=== PATIENT | male | born 1995 | race Caucasian/White ===

== ENCOUNTER 2021-03-24 03:14 | Emergency (ER) | payer SELFPAY ==
[2021-03-24] MEDS ORDERED: DIPHTH,PERTUSS(ACELL),TET 0.5 ML DISP.SYRIN IM ONE ×2 (03:29→04:10)
[2021-03-24 03:34] VITALS: BP 97/62; PULSE 125; TEMP 98.8; BMI 25.4
[2021-03-24] MEDS ORDERED: LIDOCAINE HCL 1%, 10 MG/ML (20ML VIAL) ONE (05:29)
== END 2021-03-24 07:02 | disposition home or self-care (01) ==
LOC: JER 03:14 → EDBD 03:14 → JER 07:02
PROC: 3E0234Z Introduction of Serum, Toxoid and Vaccine into Muscle, Percutaneous Approach (ICD-10-PCS; principal; 2021-03-24)
DX: S61.411A Laceration without foreign body of right hand, initial encounter (principal)
CPT/HCPCS: 73130-TC-RT-FY; 90715; 99284-25

== ENCOUNTER 2021-04-03 18:57 | Emergency (ER) | payer SELFPAY ==
[2021-04-03 19:19] VITALS: BP 136/79; PULSE 80; TEMP 100.2; BMI 26.1
[2021-04-03] MEDS ORDERED: PIPERACILLIN/TAZOBACTAM 3.375 GM VIAL IVPB ONE (19:22)
[2021-04-03] MEDS ORDERED: VANCOMYCIN 1 GM in D5W (PRE-DOCKED) 1,000 MG/250 ML IVPB ONE (19:22)
[2021-04-03] MEDS ORDERED: PIPERACILLIN/TAZOB 3.375 GM 3.375 GM in DEXTROSE 5%-WATER - 50 ML IVPB ONE (19:23)
[2021-04-03] MEDS ORDERED: VANCOMYCIN 1,000 MG VIAL (RESTRICTED TO ID ONLY) ONE (19:26)
[2021-04-03 19:57] LABS: BASO % 1.1 % (0-2.0); HEMATOCRIT 47.8 % (35.4-49); HEMOGLOBIN 16.9 GM/dl (11.7-16.9); LYMPH % 25.8 % (8-40); MCH 30.9 pg (25.7-33.7); MCHC 35.3 g/dl (32.0-35.9); MEAN CELL VOLUME 87.5 fl (80-96); MEAN PLT VOLUME 9.2 fl (7.5-11.1); MONO % 6.9 % (3.8-10.2); NEUT % 64.2 % (42.8-82.8); PLATELET COUNT 278 10^3/uL (134-434); RBC 5.47 M/mm3 (4.00-5.60); RDW 12.2 % (11.9-15.9); WHITE BLOOD COUNT 12.1 K/mm3 (4.0-10.8)
== END 2021-04-03 21:26 | disposition home or self-care (01) ==
LOC: FER 18:57
DX: S61.401A Unspecified open wound of right hand, initial encounter (principal); Z48.02 Encounter for removal of sutures
CPT/HCPCS: 36415; 85025; 87040; 87070; 87205; 99284-25

== ENCOUNTER 2021-04-05 21:13 | Emergency (ER) | payer SELFPAY ==
[2021-04-05 21:21] VITALS: BP 102/77; PULSE 89; TEMP 100.1; BMI 26.1
== END 2021-04-05 21:44 | disposition home or self-care (01) ==
LOC: FER 21:13
DX: Z48.00 Encounter for change or removal of nonsurgical wound dressing (principal)
CPT/HCPCS: 99281-25